=== PATIENT | male | born 1955 | race Caucasian/White ===

== ENCOUNTER 2025-04-27 11:58 | Emergency (ER) | payer OTHER, SELFPAY ==
--- OUTSIDE RECORDS SUMMARY | 2023-12-06 11:45 | XMS_ITS ---
Author Organization [facility] Office Address [address] [facility] [address] [facility] [address] [place] [address] Care Team Providers Care A And P Technician Name Role Phone Heath Mikey Unavailable [phone] Medications Medication SIG (Take, Route, Frequency, Duration) Notes Start Date End Date Status Jardiance 10 MG 1 tablet Orally Once a day; Duration: 90 08/03/2023 04/29/2024 Active Vitamin D (Ergocalciferol) 1.25 MG (42386 UT) TAKE 1 CAPSULE BY MOUTH ONE TIME PER WEEK FOR 90 DAYS; Duration: 28 Active Losartan Potassium 25 MG 1 tablet Orally Once a day; Duration: 90 day(s) 02/23/2023 Active Furosemide 40 MG TAKE 1 TABLET BY PARK TH EVERY 8 HOURS; Duration: 30 Active Social History Sex Assigned At : Social History Observation Description Sex Assigned At Male Encounters Encounter Location Date Provider Diagnosis [facility] [address] [place] [address] 12/06/2023 Mikey Joe Chronic kidney disea se, stage 4 (severe) N18.4 ; Heart failure, unspecified I50.9 ; Acute kidney failure, unspecified N17.9 ; Other acute kidney failure N17.8 ; Essential (primary) hypertension I10 and Renal osteodystrophy N25.0 Assessments Encounter Date Diagnosis (ICD Code) Assessment Notes Treatment Notes Treatment Clinical Notes Section Notes 12/06/2023 Chronic kidney disease, stage 4 (severe) (ICD-10 - N18.4) 12/06/2023 Heart failure, unspecified (ICD-10 - I50.9) 12/06/2023 Acute kidney failure, unspecified (ICD-10 - N17.9) 12/06/2023 Other acute kidney failure (ICD-10 - N17.8) 12/06/2023 Essential (primary) hypertension (ICD-10 - I10) 12/06/2023 Renal osteodystrophy (ICD-10 - N25.0) Plan Of Treatment Next Appt Details Provider Name:Mikey Joe , 04/29/2025 02:00:00 PM, [address] [facility], [place], [address], Progress Notes * Thierno LUGODOB:1955 (70 yo M)Acc No.[id number]:12/06/2023 Patient: Thierno HINOJOSA Provider: Ben WEST MD, F.A.C.P, F.A.S.N. :1955 A ge:68 Y S ex:Male Date:12/06/2023 Address:[address] Subjective: * Chief Complaints: Objective: Assessment: * Assessment: 1. C hronic kidney disease, stage 4 (severe) - N18.4 (Primary) 2 . H eart failure, unspecified - I50.9 3 . A cute kidney failure, unspecified - N17.9 ? 4 . O ther acute kidney failure - N17.8 5 . E ssential (primary) hypertension - I10 6 . R enal osteodystrophy - N25.0 Plan: * Billing Information: * Visit Code: 66737 Office Visit, Est Pt., Level 5. * Procedure Codes: * Electronic signature of Calista Joe MD on 04/27/2025 at 01:28 PM CDT Sign off status: Pending * Provider: Ben WEST MD, F.Mikala.C.P, F.A.S.N. Date: 0 12/06/2023 Generated for Printing/Faxing/eTransmitting on: 01:28 PM CDT
--- OUTSIDE RECORDS SUMMARY | 2023-12-28 09:00 | XMS_ITS ---
Author Organization [facility] Office Address [address] [facility] [address] [place] [address] Care Team Providers Care Small Parts Assembler Name Role Phone Mikey Joe Unavailable [phone] Medications Medication SIG (Take, Route, Frequency, Duration) Notes Start Date End Date Status Calcitriol 0.25 MCG TAKE 1 CAPSULE BY [place] UTH TWICE A DAY; Duration: 30 Active Vitamin D (Ergocalciferol) 1.25 MG (80329 UT) TAKE 1 CAPSULE BY MOUTH ONE TIME PER WEEK FOR 90 DAYS; Duration: 28 Active Jardiance 10 MG 1 tablet Orally Once a day; Duration: 90 08/03/2023 04/29/2024 Active Furosemide 40 MG TAKE 1 TABLET BY PARK TH EVERY 8 HOURS; Duration: 30 Active Losartan Potassium 25 MG 1 tablet Orally Once a day; Duration: 90 day(s) 02/23/2023 Active Social History Sex Assigned At : Social History Observation Description Sex Assigned At Male Encounters Encounter Location Date Provider Diagnosis [place] [facility] [address] [facility] [address] [place] [address] 12/28/2023 Mikey Joe Chronic kidney disea se, stage 4 (severe) N18.4 ; Heart failure, unspecified I50.9 ; Acute kidney failure, unspecified N17.9 ; Other acute kidney failure N17.8 ; Essential (primary) hypertension I10 and Renal osteodystrophy N25.0 Assessments Encounter Date Diagnosis (ICD Code) Assessment Notes Treatment Notes Treatment Clinical Notes Section Notes 12/28/2023 Chronic kidney disease, stage 4 (severe) (ICD-10 - N18.4) 12/28/2023 Heart failure, unspecified (ICD-10 - I50.9) 12/28/2023 Acute kidney failure, unspecified (ICD-10 - N17.9) 12/28/2023 Other acute kidney failure (ICD-10 - N17.8) 12/28/2023 Essential (primary) hypertension (ICD-10 - I10) 12/28/2023 Renal osteodystrophy (ICD-10 - N25.0) Plan Of Treatment Next Appt Details Provider Name:Mikey Joe , 04/29/2025 02:00:00 PM, [address] [facility], [place], [address], Progress Notes * Thierno LUGODOB:1955 (70 yo M)Acc No.[id number]:12/28/2023 Progress Notes Patient: Thierno HINOJOSA Provider: Ben WEST MD, F.A.C.P, F.A.S.N. :1955 A ge:68 Y S ex:Male Date:12/28/2023 Address:[place] [address] Subjective: * Chief Complaints: * * Medical History: * Medications: T aking Losartan Potassium 25 MG Tablet 1 tablet Orally Once a day , Taking Furosemide 40 MG Tablet TAKE 1 TABLET BY MOUTH EVERY 8 HOURS , Taking Jardiance 10 MG Tablet 1 tablet Orally Once a day , stop date 04/29/2024, Taking Vitamin D (Ergocalciferol) 1.25 MG (25074 UT) Capsule TAKE 1 CAPSULE BY MOUTH ONE TIME PER WEEK FOR 90 DAYS , Taking Calcitriol 0.25 MCG Capsule TAKE 1 CAPSULE BY MOUTH TWICE A DAY Objective: * Vitals: Assessment: * Assessment: 1. C hronic kidney disease, stage 4 (severe) - N18.4 (Primary) 2 . H eart failure, unspecified - I50.9 3 . A cute kidney failure, unspecified - N17.9 ? 4 . O ther acute kidney failure - N17.8 5 . E ssential (primary) hypertension - I10 6 . R enal osteodystrophy - N25.0 Plan: * Treatment: * Billing Information: * Visit Code: 70179 Office Visit, Est Pt., Level 4. * Procedure Codes: * Electronic signature of Calista Joe MD on 04/27/2025 at 01:28 PM CDT Sign off status: Pending * Provider: Ben WEST MD, F.A.C.P, F.A.S.N. Date: 0 12/28/2023 Generated for Printing/Faxing/eTransmitting on: 1 01:28 PM CDT
--- OUTSIDE RECORDS SUMMARY | 2024-02-29 10:00 | XMS_ITS ---
Author Organization [facility] Address 1400 [facility] [address] [facility] [address] [place] [address] Care Team Providers Care Nut Tapper Name Role Phone Mikey Joe Unavailable [phone] Medications Medication SIG (Take, Route, Frequency, Duration) Notes Start Date End Date Status Calcitriol 0.25 MCG TAKE 1 CAPSULE BY [place] UTH TWICE A DAY; Duration: 30 Active Vitamin D (Ergocalciferol) 1.25 MG (89350 UT) TAKE 1 CAPSULE BY MOUTH ONE [...] Male Encounters Encounter Location Date Provider Diagnosis [place] [facility] [address] [facility] 15 [place] [address] 02/29/2024 Mikey Joe Chronic kidney disea se, stage 4 (severe) N18.4 ; Essential (primary) hypertension I10 ; Renal osteodystrophy N25.0 ; Heart failure, unspecified I50.9 ; Acute kidney failure, unspecified N17.9 and Other acute kidney failure N17.8 Assessments Encounter Date Diagnosis (ICD Code) Assessment Notes Treatment Notes Treatment Clinical Notes Section Notes 02/29/2024 Chronic kidney disease, stage 4 (severe) (ICD-10 - N18.4) 02/29/2024 Essential (primary) hypertension (ICD-10 - I10) 02/29/2024 Renal osteodystrophy (ICD-10 - N25.0) 02/29/2024 Heart failure, unspecified (ICD-10 - I50.9) 02/29/2024 Acute kidney failure, unspecified (ICD-10 - N17.9) 02/29/2024 Other acute kidney failure (ICD-10 - N17.8) Plan Of Treatment Next Appt Details Provider Name:Mikey Joe , 04/29/2025 02:00:00 PM, [address] [facility], [place], [address], Progress Notes * Thierno LUGODOB:1955 (70 yo M)Acc No.[id number]:02/29/2024 Progress Notes Patient: Thierno HINOJOSA Provider: Ben WEST MD, F.A.C.P, F.A.S.N. :1955 A ge:68 Y S ex:Male Date:02/29/2024 Address:[place] [address] Subjective: * Chief Complaints: * * Medical History: * Medications: T aking Losartan Potassium 25 MG Tablet 1 tablet Orally Once a day , Taking Furosemide 40 MG Tablet TAKE 1 TABLET BY MOUTH EVERY 8 HOURS , Taking Jardiance 10 MG Tablet 1 tablet Orally Once a day , stop date 04/29/2024, Taking Vitamin D (Ergocalciferol) 1.25 MG (44292 UT) Capsule TAKE 1 CAPSULE BY MOUTH ONE TIME PER WEEK FOR 90 DAYS , Taking Calcitriol 0.25 MCG Capsule TAKE 1 CAPSULE BY MOUTH TWICE A DAY Objective: * Vitals: Assessment: * Assessment: 1. C hronic kidney disease, stage 4 (severe) - N18.4 (Primary) 2 . E ssential (primary) hypertension - I10 3 . R enal osteodystrophy - N25.0 ?4. H eart failure, unspecified - I50.9 5 . A cute kidney failure, unspecified - N17.9 6 . O ther acute kidney failure - N17.8 Plan: * Treatment: * Billing Information: * Visit Code: 31694 Office Visit, Est Pt., Level 4. * Procedure Codes: * Electronic signature of Calista Joe MD on 04/27/2025 at 01:28 PM CDT Sign off status: Pending * Provider: Ben WEST MD, F.A.C.P, F.A.S.N. Date: 0 02/29/2024 Generated for Printing/Faxing/eTransmitting on: 1 01:28 PM CDT
--- OUTSIDE RECORDS SUMMARY | 2024-03-28 09:15 | XMS_ITS ---
Author Organization [facility] Office Address 1400 [facility] [address] [facility] [address] [place] [address] Care Team Providers Care National Facilities Manager Name Role Phone Heath Mikey Unavailable [phone] Medications Medication SIG (Take, Route, Frequency, Duration) Notes Start Date End Date Status Calcitriol 0.25 MCG TAKE 1 CAPSULE BY [place] UTH TWICE A DAY; Duration: 30 Active Furosemide 40 MG TAKE 1 TABLET BY PARK TH TWICE A DAY; Duration: 30 Active Losartan Potassium 25 MG 1 tablet Orally Once a day; Duration: 90 day(s) 02/23/2023 Active Jardiance 10 MG 1 tablet Orally Once a day; Duration: 90 08/03/2023 04/29/2024 Active Vitamin D (Ergocalciferol) 1.25 MG (94003 UT) TAKE 1 CAPSULE BY MOUTH ONE TIME PER WEEK FOR 90 DAYS; Duration: 28 Active Social History Sex Assigned At : Social History Observation Description Sex Assigned At Male Encounters Encounter Location Date Provider Diagnosis [place] [facility] [address] [facility] 15 [place] [address] 03/28/2024 Mikey Joe Chronic kidney disea se, stage 4 (severe) N18.4 ; Essential (primary) hypertension I10 ; Heart failure, unspecified I50.9 ; Acute kidney failure, unspecified N17.9 ; Other acute kidney failure N17.8 and Renal osteodystrophy N25.0 Assessments Encounter Date Diagnosis (ICD Code) Assessment Notes Treatment Notes Treatment Clinical Notes Section Notes 03/28/2024 Chronic kidney disease, stage 4 (severe) (ICD-10 - N18.4) 03/28/2024 Essential (primary) hypertension (ICD-10 - I10) 03/28/2024 Heart failure, unspecified (ICD-10 - I50.9) 03/28/2024 Acute kidney failure, unspecified (ICD-10 - N17.9) 03/28/2024 Other acute kidney failure (ICD-10 - N17.8) 03/28/2024 Renal osteodystrophy (ICD-10 - N25.0) Plan Of Treatment Next Appt Details Provider Name:Mikey Joe , 04/29/2025 02:00:00 PM, [address] [facility], [place], [address], Progress Notes * Thierno ULGODOB:1955 (70 yo M)Acc No.[id number]:03/28/2024 Progress Notes Patient: Thierno HINOJOSA Provider: Ben WEST MD, F.A.C.P, F.A.S.N. :1955 A ge:68 Y S ex:Male Date:03/28/2024 Address:[place] [address] Subjective: * Chief Complaints: * * Medical History: * Medications: T aking Losartan Potassium 25 MG Tablet 1 tablet Orally Once a day , Taking Jardiance 10 MG Tablet 1 tablet Orally Once a day , stop date 04/29/2024, Taking Vitamin D (Ergocalciferol) 1.25 MG (59544 UT) Capsule TAKE 1 CAPSULE BY MOUTH ONE TIME PER WEEK FOR 90 DAYS , Taking Calcitriol 0.25 MCG Capsule TAKE 1 CAPSULE BY MOUTH TWICE A DAY , Taking Furosemide 40 MG Tablet TAKE 1 TABLET BY MOUTH TWICE A DAY Objective: * Vitals: Assessment: * Assessment: 1. C hronic kidney disease, stage 4 (severe) - N18.4 (Primary) 2 . E ssential (primary) hypertension - I10 3 . H eart failure, unspecified - I50.9 ? 4 . A cute kidney failure, unspecified - N17.9 5 . O ther acute kidney failure - N17.8 6 . R enal osteodystrophy - N25.0 Plan: * Treatment: * Billing Information: * Visit Code: 63500 Office Visit, Est Pt., Level 4. * Procedure Codes: * Electronic signature of Calista Joe MD on 04/27/2025 at 01:28 PM CDT Sign off status: Pending * Provider: Ben WEST MD, F.A.C.P, F.A.S.N. Date: 0 03/28/2024 Generated for Printing/Faxing/eTransmitting on: 1 01:28 PM CDT
--- OUTSIDE RECORDS SUMMARY | 2024-05-21 10:15 | XMS_ITS ---
Author Organization [facility] Office Address [address] [place] [address] Care Team Providers Care Tumbler Drier Operator Name Role Phone Mikey Joe Unavailable [phone] Medications Medication SIG (Take, Route, Frequency, Duration) Notes Start Date End Date Status Lexapro 10 MG 1 tablet Orally Once a day; Duration: 90 days 03/28/2024 Active Cardura 2 MG 1 tablet at bedtime Orally; Duration: 30 days 03/28/2024 07/25/2024 Active Vitamin D (Ergocalciferol) 1.25 MG (36703 UT) TAKE 1 CAPSULE BY MOUTH ONE TIME PER WEEK FOR 90 DAYS; Duration: 28 Active Calcitriol 0.25 MCG TAKE 1 CAPSULE BY [...] Male Encounters Encounter Location Date Provider Diagnosis [place] [facility] [address] [facility] 15 [place] [address] 05/21/2024 Mikey Joe Heart failure, unspecified I50.9 ; Chronic kidney disease, stage 5 N18.5 ; Acute kidney failure, unspecified N17.9 ; Other acute kidney failure N17.8 ; Essential (primary) hypertension I10 ; Renal osteodystrophy N25.0 and Chronic kidney disease, stage 4 (severe) N18.4 Assessments Encounter Date Diagnosis (ICD Code) Assessment Notes Treatment Notes Treatment Clinical Notes Section Notes 05/21/2024 Heart failure, unspecified (ICD-10 - I50.9) 05/21/2024 Chronic kidney disease, stage 5 (ICD-10 - N18.5) 05/21/2024 Acute kidney failure, unspecified (ICD-10 - N17.9) 05/21/2024 Other acute kidney failure (ICD-10 - N17.8) 05/21/2024 Essential (primary) hypertension (ICD-10 - I10) 05/21/2024 Renal osteodystrophy (ICD-10 - N25.0) 05/21/2024 Chronic kidney disease, stage 4 (severe) (ICD-10 - N18.4) Plan Of Treatment Next Appt Details Provider Name:Mikey Heath , 04/29/2025 02:00:00 PM, [address] [facility], [place], [address], Progress Notes * Thierno LUGODOB:1955 (70 yo M)Acc No.[id number]:05/21/2024 Progress Notes Patient: Thierno HINOJOSA Provider: Ben WEST MD, F.Mikala.CKeishaP, F.A.S.N. :1955 A ge:69 Y S ex:Male Date:05/21/2024 Address:[place] [id number] Subjective: * Chief Complaints: * * Medical History: * Medications: T aking Lexapro 10 MG Tablet 1 tablet Orally Once a day , Taking Cardura 2 MG Tablet 1 tablet at bedtime Orally , stop date 07/25/2024, Taking Losartan Potassium 25 MG Tablet 1 tablet Orally Once a day , Taking Vitamin D (Ergocalciferol) 1.25 MG (10578 UT) Capsule TAKE 1 CAPSULE BY MOUTH ONE TIME PER WEEK FOR 90 DAYS , Taking Calcitriol 0.25 MCG Capsule TAKE 1 CAPSULE BY MOUTH TWICE A DAY , Taking Furosemide 40 MG Tablet TAKE 1 TABLET BY MOUTH TWICE A DAY Objective: * Vitals: Assessment: * Assessment: 1. C hronic kidney disease, stage 5 - N18.5 (Primary) 2 . H eart failure, unspecified - I50.9 3 . A cute kidney failure, unspecified - N17.9 ?4. O ther acute kidney failure - N17.8 5 . E ssential (primary) hypertension - I10 6 . R enal osteodystrophy - N25.0 7 . C hronic kidney disease, stage 4 (severe) - N18.4 Plan: * Treatment: * Billing Information: * Visit Code: 27270 Office Visit, Est Pt., Level 4. * Procedure Codes: * Electronic signature of Calista Joe MD on 04/27/2025 at 01:29 PM CDT Sign off status: Pending * Provider: Ben WEST MD, F.A.C.P, F.A.S.N. Date: 07/21/2023 Generated for Printing/Faxing/eTransmitting on: 01:29 PM CDT
--- OUTSIDE RECORDS SUMMARY | 2024-07-23 09:30 | XMS_ITS ---
Author Organization [facility] Address 1400 [facility] [address] [facility] [address] [place] [address] Care Team Providers Care Blade Worker Name Role Phone Mikey Joe Unavailable [phone] Medications Medication SIG (Take, Route, Frequency, Duration) Notes Start Date End Date Status Cardura 2 MG 1 tablet at bedtime Orally; Duration: 30 days 03/28/2024 07/25/2024 Active Calcitriol 0.25 MCG TAKE 1 CAPSULE BY [place] UTH TWICE A DAY; Duration: 30 Active Furosemide 40 MG TAKE 1 TABLET BY PARK TH TWICE A DAY; Duration: 30 Active Losartan Potassium 25 MG 1 tablet Orally Once a day; Duration: 90 day(s) 02/23/2023 Active Vitamin D (Ergocalciferol) 1.25 MG (00477 UT) TAKE 1 CAPSULE BY MOUTH ONE TIME PER WEEK FOR 90 DAYS; Duration: 28 Active Lexapro 10 MG 1 tablet Orally Once a day; Duration: 90 days 03/28/2024 Active Doxazosin Mesylate 2 MG 1 tablet Orally Once a day; Duration: 90 days 05/21/2024 02/15/2025 Active Social History Sex Assigned At : Social History Observation Description Sex Assigned At Male Problems Problem Type SNOMED Code ICD Code Onset Dates Problem Status W/U Status Risk Notes Problem Diabetic renal disease (770924104) Type 2 diabetes mellitus with diabetic chronic kidney disease (E11.22) Active confirmed Problem Secondary hyperparathyroidism of renal origin (46214441) Secondary hyperparathyroidism of renal origin (N25.81) Active confirmed Encounters Encounter Location Date Provider Diagnosis [place] [facility] [address] [facility] 15 [place] [address] 07/23/2024 Mikey Joe Type 2 diabetes [facility] with diabetic chronic kidney disease E11.22 ; Essential (primary) hypertension I10 ; Proteinuria, unspecified R80.9 ; Renal osteodystrophy N25.0 and Secondary hyperparathyroidism of renal origin N25.81 Assessments Encounter Date Diagnosis (ICD Code) Assessment Notes Treatment Notes Treatment Clinical Notes Section Notes 07/23/2024 Type 2 diabetes mellitus with diabetic chronic kidney disease (ICD-10 - E11.22) 07/23/2024 Essential (primary) hypertension (ICD-10 - I10) 07/23/2024 Proteinuria, unspecified (ICD-10 - R80.9) 07/23/2024 Renal osteodystrophy (ICD-10 - N25.0) 07/23/2024 Secondary hyperparathyroidism of renal origin (ICD-10 - N25.81) Plan Of Treatment Next Appt Details Provider Name:Mikey Joe , 04/29/2025 02:00:00 PM, [address] [facility], [place], [address], Progress Notes * SAMIA ThiernoDOB:1955 (70 yo M)Acc No.[id number]:07/23/2024 Progress Notes Patient: Thierno HINOJOSA Provider: Ben WEST MD, F.A.C.P, F.A.S.N. :1955 A ge:69 Y S ex:Male Date:07/23/2024 Address:[place] [address] Subjective: * Chief Complaints: * * Medical History: * Medications: T aking Doxazosin Mesylate 2 MG Tablet 1 tablet Orally Once a day , stop date 02/15/2025, Taking Lexapro 10 MG Tablet 1 tablet Orally Once a day , Taking Cardura 2 MG Tablet 1 tablet at bedtime Orally , stop date 07/25/2024, Taking Losartan Potassium 25 MG Tablet 1 tablet Orally Once a day , Taking Vitamin D (Ergocalciferol) 1.25 MG (87335 UT) Capsule TAKE 1 CAPSULE BY MOUTH ONE TIME PER WEEK FOR 90 DAYS , Taking Calcitriol 0.25 MCG Capsule TAKE 1 CAPSULE BY MOUTH TWICE A DAY , Taking Furosemide 40 MG Tablet TAKE 1 TABLET BY MOUTH TWICE A DAY Objective: * Vitals: Assessment: * Assessment: 1. T ype 2 diabetes mellitus with diabetic chronic kidney disease - E11.22 (Primary) 2 . E ssential (primary) hypertension - I10 3 . P roteinuria, unspecified - R80.9 4 . R enal osteodystrophy - N25.0 5 . S econdary hyperparathyroidism of renal origin - N25.81 Plan: * Treatment: * Billing Information: * Visit Code: 32516 Office Visit, Est Pt., Level 4. * Procedure Codes: * Electronic signature of Calista Joe MD on 04/27/2025 at 01:29 PM CDT Sign off status: Pending * Provider: Ben WEST MD, F.A.C.P, F.A.S.N. Date: 0 07/23/2024 Generated for Printing/Faxing/eTransmitting on: 1 01:29 PM CDT
--- OUTSIDE RECORDS SUMMARY | 2024-09-10 09:45 | XMS_ITS ---
Author Organization [facility] Office Address [address] [place] [address] [place] [address] Care Team Providers Care Medical Technologist Prn Name Role Phone Mikey Joe Unavailable [phone] Social History Sex Assigned At : Social History Observation Description Sex Assigned At Male Problems Problem Type SNOMED Code ICD Code Onset Dates Problem Status W/U Status Risk Notes Problem Anemia (057499277) Anemia, unspecified (D64.9) Active confirmed Problem Proteinuria (63648476) Proteinuria, unspecified (R80.9) Active confirmed Encounters Encounter Location Date Provider Diagnosis [place] [facility] [address] [facility] 15 [place] [address] 09/10/2024 Mikey Joe Chronic kidney disea se, stage 4 (severe) N18.4 ; Heart failure, unspecified I50.9 ; Acute kidney failure, unspecified N17.9 ; Other acute kidney failure N17.8 ; Essential (primary) hypertension I10 ; Renal osteodystrophy N25.0 ; Type 2 diabetes mellitus with diabetic chronic kidney disease E11.22 ; Secondary hyperparathyroidism of renal origin N25.81 ; Anemia, unspecified D64.9 and Proteinuria, unspecified R80.9 Assessments Encounter Date Diagnosis (ICD Code) Assessment Notes Treatment Notes Treatment Clinical Notes Section Notes 09/10/2024 Chronic kidney disea se, stage 4 (severe) (ICD-10 - N18.4) 09/10/2024 Heart failure, unspecified (ICD-10 - I50.9) 09/10/2024 Acute kidney failure , unspecified (ICD-10 - N17.9) 09/10/2024 Other acute kidney failure (ICD-10 - N17.8) 09/10/2024 Essential (primary) hypertension (ICD-10 - I10) 09/10/2024 Renal osteodystrophy (ICD-10 - N25.0) 09/10/2024 Type 2 diabetes mellitus with diabetic chronic kidney disease (ICD-10 - E11.22) 09/10/2024 Secondary hyperparathyroidism of renal origin (ICD-10 - N25.81) 09/10/2024 Anemia, unspecified (ICD-10 - D64.9) 09/10/2024 Proteinuria, unspecified (ICD-10 - R80.9) Plan Of Treatment Next Appt Details Provider Name:Mikey Heath , 04/29/2025 02:00:00 PM, [address] [facility], [place], [address], Progress Notes * Thierno LUGODOB:1955 (70 yo M)Acc No.[id number]:09/10/2024 Progress Notes Patient: Thierno HINOJOSA Provider: Ben WEST MD, F.A.C.P, F.A.S.N. :1955 A ge:69 Y S ex:Male Date:09/10/2024 Address:[place] [id number] Subjective: * Chief Complaints: * * Medical History: Objective: * Vitals: Assessment: * Assessment: 1. C hronic kidney disease, stage 4 (severe) - N18.4 (Primary) 2 . H eart failure, unspecified - I50.9 3 . A cute kidney failure, unspecified - N17.9 ? 4 . O ther acute kidney failure - N17.8 5 . E ssential (primary) hypertension - I10 6 . R enal osteodystrophy - N25.0 7 . T ype 2 diabetes mellitus with diabetic chronic kidney disease - E11.22 8 . S econdary hyperparathyroidism of renal origin - N25.81 9 . A nemia, unspecified - D64.9 1 0. P roteinuria, unspecified - R80.9 Plan: * Treatment: * Billing Information: * Visit Code: 62434 Office Visit, Est Pt., Level 4. * Procedure Codes: * Electronic signature of Calista Joe MD on 04/27/2025 at 01:28 PM CDT Sign off status: Pending * Provider: Ben WEST MD, F.A.C.P, F.A.S.N. Date: 0 09/10/2024 Generated for Printing/Faxing/eTransmitting on: 1 01:28 PM CDT
--- OUTSIDE RECORDS SUMMARY | 2024-11-19 09:30 | XMS_ITS ---
Author Organization [facility] Office Address [id number] [place] [address] Care Team Providers Care Media Theorist And Author Of Name Role Phone Mikey Joe Unavailable [phone] Social History Sex Assigned At : Social History Observation Description Sex Assigned At Male Encounters Encounter Location Date Provider Diagnosis [place] [facility] [address] [facility] [address] [place] [address] 11/19/2024 Mikey Joe Chronic kidney disea se, stage [...] Treatment Notes Treatment Clinical Notes Section Notes 11/19/2024 Chronic kidney disea se, stage 4 (severe) (ICD-10 - N18.4) 11/19/2024 Heart failure, unspecified (ICD-10 - I50.9) 11/19/2024 Acute kidney failure , unspecified (ICD-10 - N17.9) 11/19/2024 Other acute kidney failure (ICD-10 - N17.8) 11/19/2024 Essential (primary) hypertension (ICD-10 - I10) 11/19/2024 Renal osteodystrophy (ICD-10 - N25.0) 11/19/2024 Type 2 diabetes mellitus with diabetic chronic kidney disease (ICD-10 - E11.22) 11/19/2024 Secondary hyperparathyroidism of renal origin (ICD-10 - N25.81) 11/19/2024 Anemia, unspecified (ICD-10 - D64.9) 11/19/2024 Proteinuria, unspecified (ICD-10 - R80.9) Plan Of Treatment Next Appt Details Provider Name:Mikey Heath , 04/29/2025 02:00:00 PM, [address] [facility], [place], [address], Progress Notes * Thierno LUGODOB:1955 (70 yo M)Acc No.[id number]:11/19/2024 Progress Notes Patient: Thierno HINOJOSA Provider: Ben WEST MD, F.A.C.P, F.A.S.N. :1955 A ge:69 Y S ex:Male Date:11/19/2024 Address:[address] Subjective: * Chief Complaints: * * Medical [...] Treatment: * Billing Information: * Visit Code: 44607 Office Visit, Est Pt., Level 4. * Procedure Codes: * Electronic signature of Calista Joe MD on 04/27/2025 at 01:29 PM CDT Sign off status: Pending * Provider: Ben WEST MD, F.A.C.P, F.A.S.N. Date: 0 11/19/2024 Generated for Printing/Faxing/eTransmitting on: 1 01:29 PM CDT
--- OUTSIDE RECORDS SUMMARY | 2025-01-14 09:00 | XMS_ITS ---
Author Organization [facility] Address [address] [address] [place] [address] Care Team Providers Care Executive Secretary Name Role Phone Mikey Joe Unavailable [phone] Social History Sex Assigned At : Social History Observation Description Sex Assigned At Male Problems Problem Type SNOMED Code ICD Code Onset Dates Problem Status W/U Status Risk Notes Problem Metabolic disorder (37556030) Metabolic disorder, unspecified (E88.9) Active confirmed Encounters Encounter Location Date Provider Diagnosis [facility] [address] 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 Assessments Encounter Date Diagnosis (ICD Code) Assessment Notes Treatment Notes Treatment Clinical Notes Section Notes 01/14/2025 Chronic kidney disea se, stage 4 (severe) (ICD-10 - N18.4) 01/14/2025 Heart failure, unspecified (ICD-10 - I50.9) 01/14/2025 Acute kidney failure , unspecified (ICD-10 - N17.9) 01/14/2025 Other acute kidney failure (ICD-10 - N17.8) 01/14/2025 Essential (primary) hypertension (ICD-10 - I10) 01/14/2025 Renal osteodystrophy (ICD-10 - N25.0) 01/14/2025 Type 2 diabetes mellitus with diabetic chronic kidney disease (ICD-10 - E11.22) 01/14/2025 Secondary hyperparathyroidism of renal origin (ICD-10 - N25.81) 01/14/2025 Anemia, unspecified (ICD-10 - D64.9) 01/14/2025 Proteinuria, unspecified (ICD-10 - R80.9) 01/14/2025 Metabolic disorder, unspecified (ICD-10 - E88.9) 01/14/2025 Hyperuricemia withou t signs of inflammatory arthritis and tophaceous disease (ICD-10 - E79.0) Plan Of Treatment Next Appt Details Provider Name:Mikey Heath , 04/29/2025 02:00:00 PM, [address] [facility], [place], [address], Progress Notes * Thierno LUGODOB:1955 (70 yo M)Acc No.[id number]:01/14/2025 Progress Notes Patient: Thierno HINOJOSA Provider: Ben WEST MD, F.A.C.P, F.A.S.N. :1955 A ge:69 Y S ex:Male Date:01/14/2025 Address:[id number] Subjective: * Chief Complaints: * * Medical [...] 1 0. P roteinuria, unspecified - R80.9 1 1. M etabolic disorder, unspecified - E88.9 1 2. H yperuricemia without signs of inflammatory arthritis and tophaceous disease - E79.0 Plan: * Treatment: * Billing Information: * Visit Code: 84153 Office Visit, Est Pt., Level 4. * Procedure Codes: * Electronic signature of Calista Joe MD on 04/27/2025 at 01:29 PM CDT Sign off status: Pending * Provider: Ben WEST MD, F.A.C.P, F.A.S.N. Date: 0 01/14/2025 Generated for Printing/Faxing/eTransmitting on: 1 01:29 PM CDT
--- OUTSIDE RECORDS SUMMARY | 2025-04-15 09:15 | XMS_ITS ---
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.89 and CAD (coronary artery disease) I25.10 Assessments Encounter Date Diagnosis (ICD Code) Assessment Notes Treatment Notes Treatment Clinical Notes Section Notes 04/15/2025 Chronic kidney disea se, stage 4 (severe) (ICD-10 - N18.4) 04/15/2025 Heart failure, unspecified (ICD-10 - I50.9) 04/15/2025 Acute kidney failure , unspecified (ICD-10 - N17.9) 04/15/2025 Other acute kidney failure (ICD-10 - N17.8) 04/15/2025 Essential (primary) hypertension (ICD-10 - I10) 04/15/2025 Renal osteodystrophy (ICD-10 - N25.0) 04/15/2025 Type 2 diabetes mellitus with diabetic chronic kidney disease (ICD-10 - E11.22) 04/15/2025 Secondary hyperparathyroidism of renal origin (ICD-10 - N25.81) 04/15/2025 Anemia, unspecified (ICD-10 - D64.9) 04/15/2025 Proteinuria, unspecified (ICD-10 - R80.9) 04/15/2025 Metabolic disorder, unspecified (ICD-10 - E88.9) 04/15/2025 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 :1955 A ge:70 Y S ex:Male Date:04/15/2025 Address:[address] [address] Subjective: * Chief Complaints: Objective: Assessment: * [...] etabolic disorder, unspecified - E88.9 1 2. O ther specified disorders of purine and pyrimidine metabolism - E79.89 1 3. C AD (coronary artery disease) - I25.10 ? Plan: * Billing Information: * Visit Code: 25919 Office Visit, Est Pt., Level 4. * Procedure Codes: * Electronic signature of Calista Joe MD on 04/27/2025 at 01:27 PM CDT Sign off status: Pending * Provider: Ben WEST MD, F.A.C.P, F.A.S.N. Date: Generated for Printing/Faxing/eTransmitting on: 01:27 PM CDT
[2025-04-27 12:08] VITALS: BP 127/77; PULSE 107; RESP 24; TEMP 36.6; O2SAT 100
--- NOTE | 2025-04-27 13:00 | ED_ITS ---
HPI - Ear Problem General Chief complaint: Ear Stated complaint: Bilateral Ear Pain Source: patient Mode of arrival: ambulatory Limitations: no limitations History of Present Illness HPI Narrative: Patient presents for evaluation of what he states as a buzzing sensation in the left ear. Symptom onset about 1 week ago. He indicates he fell into some his own excrement and thinks that he has stool in his left ear canal. He denies any pain, drainage from the ear, or hearing loss. He is currently under the care of Nephrology and has an appointment with them in two days. He denies any fever, chills, cough, shortness of breath, sore throat, right-sided otalgia. He does not smoke. He has been trying to clean his ears to treat his symptoms but he does not feel it made a considerable difference in his symptoms. Related Data Home Medications ?Medication ?Instructions ?Recorded ?Confirmed ?Last Taken ?Type allopurinol 100 mg tablet mg 04/27/25 Unknown History calcitriol 0.25 mcg capsule mcg 04/27/25 Unknown Hist ory doxazosin 2 mg tablet mg 04/27/25 Unknown History empagliflozin 10 mg tablet mg 04/27/25 Unknown Histor y (Jardiance) ergocalciferol (vitamin D2) 1,250 04/27/25 Unknown H istory mcg (50,000 unit) capsule escitalopram oxalate 10 mg tablet mg 04/27/25 Unknown History ferrous sulfate 325 mg (65 mg mg 04/27/25 Unknown His tory iron) tablet furosemide 40 mg tablet mg 04/27/25 Unknown History lisinopril 40 mg tablet mg 04/27/25 Unknown History metoprolol succinate 100 mg mg PO 04/27/25 Unknown Hi story tablet,extended release 24 hr rosuvastatin 40 mg tablet mg 04/27/25 Unknown History Allergies Allergy/AdvReac Type Severity Reaction Status Date / Time No Known Allergies Allergy Verified 04/27/25 12:23 Review of Systems Review of Systems: CONSTITUTIONAL: Denies fever, chills, or sweats. EYES: Denies visual changes, redness, or discharge. ENT: Reports buzzing sensation in the left ear without pain, hearing loss or d rainage. CARDIOVASCULAR: Denies chest pain, palpitations, or edema. RESPIRATORY: Denies cough or dyspnea. GASTROINTESTINAL: Denies abdominal pain, nausea, vomiting, or diarrhea. GENITOURINARY: Denies dysuria or hematuria. SKIN: Denies rash or itching. MUSCULOSKELETAL: Denies back pain, joint pain, or myalgia. NEUROLOGIC: Denies headache, numbness, dizziness, or weakness. PSYCHIATRIC: Denies anxiety or depression. [facility] Past Medical History Medical History Hyperlipidemia Chronic kidney disease Surgical History Surgical History No pertinent past surgical history Family History Family History Mother Family history non-contributory Social History Social History Alcohol intake: former Gender identity (if verbalized by the patient): Male Spiritual care concerns: No Exam Narrative: GENERAL: appears chronically ill but in no apparent distress HEAD: Normocephalic, atraumatic. EYES: PERRLA and EOMI. ENT: Nares clear, no rhinorrhea or epistaxis. Mucous membranes moist. Oropharynx without tonsillar hypertrophy exudate or other lesions. Bilateral TMs pearly nicole nonbulging NECK: Supple. No adenopathy or masses. No carotid bruits or JVD CHEST: Clear to auscultation. No respiratory distress. No wheezes rales or rhonchi HEART: Regular rate and rhythm. No murmur heard. Normal peripheral pulses. ABDOMEN: Soft, nontender, nondistended, normal active bowel sounds. EXTREMITIES: Normal range of motion. No edema. SKIN: Generalized pallor. Warm, dry, no rash. NEURO: No focal deficits. Alert and oriented x3. PSYCH: Normal mood and affect. Course Course Emergency Course: this is a 70-year-old male who presented for evaluation of a buzzing sensation in left ear. His ear exam today is completely normal. I do not appreciate any posterior pharyngeal erythema or exudate. He has no other infectious symptoms. Perhaps this is related to abnormal lab work. He has a follow-up appointment with his lab support service tech in the next 2 days. In the event that he does not have a improvement, I provided him with the contact information for Ear Nose and Throat provider with [facility]. He should go to the emergency department for worsening symptoms. Patient in agreement with plan of care. Level of Care: Express Care Visit Vital Signs Vital signs: Vital Signs Temperature 36.6 C 04/27/25 12:08 Pulse Rate 107 H 04/27/25 12:08 Respiratory Rate 24 H 04/27/25 12:08 Blood Pressure 127/77 04/27/25 12:08 Pulse Oximetry 100 04/27/25 12:08 Oxygen Delivery Room Air 04/27/25 12:08 Temperature 36.6 C 04/27/25 12:08 Pulse Rate 107 H 04/27/25 12:08 Respiratory Rate 24 H 04/27/25 12:08 Blood Pressure 127/77 04/27/25 12:08 Pulse Oximetry 100 04/27/25 12:08 Oxygen Delivery Room Air 04/27/25 12:08 Medical Decision Making Vital Signs Vital Signs: Vital Signs Temperature 36.6 C 04/27/25 12:08 Pulse Rate 107 H 04/27/25 12:08 Respiratory Rate 24 H 04/27/25 12:08 Blood Pressure 127/77 04/27/25 12:08 Pulse Oximetry 100 04/27/25 12:08 Oxygen Delivery Room Air 04/27/25 12:08 Temperature 36.6 C 04/27/25 12:08 Pulse Rate 107 H 04/27/25 12:08 Respiratory Rate 24 H 04/27/25 12:08 Blood Pressure 127/77 04/27/25 12:08 Pulse Oximetry 100 04/27/25 12:08 Oxygen Delivery Room Air 04/27/25 12:08 Discharge Plan Discharge Clinical Impression: Buzzing in left ear Patient Disposition: Home Condition: Stable Instructions: Antibiotic Form, Earache (ED) Additional Instructions: PLEASE SPEAK WITH YOU PRIMARY PROVIDER AND YOUR CASTING COORDINATOR ABOUT YOUR SYMPTOMS. THIS COULD BE RELATED TO YOUR KIDNEY FUNCTION. IF YOU SYMPTOMS PERSIST, YOU MAY REACH OUT TO EAR, NOSE AND THROAT DOCTOR Patient Language: [place] Prescriptions: No Action furosemide 40 mg tablet metoprolol succinate 100 mg tablet extended release 24 hr PO allopurinol 100 mg tablet ferrous sulfate 325 mg (65 mg iron) tablet ergocalciferol (vitamin D2) 1,250 mcg (50,000 unit) capsule lisinopril 40 mg tablet calcitriol 0.25 mcg capsule doxazosin 2 mg tablet escitalopram oxalate 10 mg tablet rosuvastatin 40 mg tablet Jardiance 10 mg tablet Follow-up/Referrals: Dany Forman MD [Physician, Ear, Nose, Throat] [facility] Shell [Primary Care Provider] Time of Disposition: 12:58
--- OUTSIDE RECORDS SUMMARY | 2025-04-27 13:28 | XMS_ITS | Encounter Summary ---
Author Organization [facility] Address [address] [place] [address] Care Team Providers Care Planting Material Carrier Name Role Phone Shell Nevarez MD Primary Care Provider [phone] Encounter Details Date Type Department Care Team (Late st Contact Info) Description 2025 Results Follow-Up [facility] Family Medicine [address] [facility] [address] [place] [phone] Shell Nevarez MD [address] [place] [address] [address] [place] [address] CBC with auto differential, Lipid panel, Comprehensive metabolic panel Social History Tobacco Use Types Packs/Day Years Used Date Smoking Tobacco: Never PHQ-2 Answer Date Recorded PHQ-2 Total Score (If total score is 3 or more points, staff should administer the PHQ-9) 0 01/07/2025 Sex and Gender Information Value Date Recorded Sex Assigned at Not on file Legal Sex Male 10:33 AM CDT Gender Identity Not on file Sexual Orientation Not on file documented as of this encounter Plan of Treatment Not on file documented as of this encounter Visit Diagnoses Not on filedocumented in this encounter Care Teams Planting Material Carrier Relationship Specialty Start Date End Date Shell Nevarez MD PCP - General Family Medicine 10/01/24 documented as of this encounter
--- OUTSIDE RECORDS SUMMARY | 2025-04-27 13:28 | XMS_ITS | Clinical Summary ---
Author Organization [facility] [place] Address [address] [place] [address] Care Team Providers Care Foxer Name Role Phone Shell Nevarez MD Primary Care Provider [phone] Allergies No known active allergies Medications albuterol HFA (PROVENTIL HFA,VENTOLIN HFA,PROAIR HFA) 90 mcg/actuation inhaler 1 puff Active ascorbic acid, vitamin C, (VITAMIN C) 500 mg capsule, extended release CR capsule Take 1 mg twice a day by oral route. Active calcitRIOL (ROCALTROL) 0.25 mcg capsule Take 1 capsule (0.25 mcg total) by mouth 2 (two) times a day Active doxazosin (CARDURA) 2 mg tablet 1 tablet (2 mg total) Active Jardiance 10 mg tablet Take 1 tablet (10 mg total) by mouth daily Active escitalopram (LEXAPRO) 10 mg tablet 1 tablet (10 mg total) Active ferrous sulfate 325 mg (65 mg of elemental iron) tablet Take 1 tablet (325 mg total) by mouth daily Active furosemide (LASIX) 40 mg tablet Take 1 tablet (40 mg total) by mouth daily Active lisinopriL (PRINIVIL,ZESTR IL) 40 mg tablet Take 1 tablet (40 mg total) by mouth daily Active metoprolol XL (TOPROL-XL) 100 mg 24 hr tablet Take 1 tablet (100 mg total) by mouth nightly 90 tablet 3 01/06/2025 Active rosuvastatin (CRESTOR) 40 mg tablet Take 1 tablet (40 mg total) by mouth nightly 90 tablet 3 01/06/2025 Active ergocalciferol, vitamin D2, 10 mcg (400 unit) tablet Take 1.25 mg by mouth every 2 (two) weeks Active Active Problems Problem Noted Date Diagnosed Date Well adult exam 01/07/2025 Assessment & Plan (01/18/2025 4:33 PM CDT): Orders: PSA screen; Future Comprehensive metabolic panel; Future Lipid panel; Future CBC with auto differential; Future Paroxysmal atrial fibrillation 01/06/2025 Assessment & Plan (01/18/2025 4:33 PM CDT): Orders: Comprehensive metabolic panel; Future Lipid panel; Future CBC with auto differential; Future Cardiomyopathy 01/06/2025 CKD (chronic kidney disease) stage 4, GFR 15-29 ml/min 01/06/2025 Assessment & Plan (01/18/2025 4:33 PM CDT): Orders: Comprehensive metabolic panel; Future Lipid panel; Future CBC with auto differential; Future Encounters Date Type Department Care Team Description 2025 Results Follow-Up [facility] [address] [facility] [address] [place] [address] Shell Nevarez MD CBC with auto differential, Lipid panel, Comprehensive metabolic panel 02/18/2025 Results Follow-Up [facility] [address] [facility] [address] [place] [address] Janet Perez MD Transthoracic Echo (TTE) Complete W Doppler/CF 02/13/2025 12:23 PM CDT - 02/13/2025 11:59 PM CDT Hospital Encounter [facility] [address] [place] [address] Janet Perez MD Cardiomyopathy, unspecified type (HCC); Paroxysmal atrial fibrillation (HCC) Discharge Disposition: Discharge to home or self care from Last 3 Months Immunizations Immunization Administration Dates Next Due Influenza, Unspecified 04/01/2024(Deferred: Shanta ent Refused) Medical History Medical History Date Comments CHF (congestive heart failure) (HCC) Irregular heart beat Enlarged heart Social History Tobacco Use Types Packs/Day Years Used Date Smoking Tobacco: Never Tobacco Cessation:Counseling Given: Not Answered PHQ-2 Answer Date Recorded PHQ-2 Total Score (If total score is 3 or more points, staff should administer the PHQ-9) 0 01/07/2025 Sex and Gender Information Value Date Recorded Sex Assigned at Not on file Legal Sex Male 10:33 AM CDT Gender Identity Not on file Sexual Orientation Not on file Obstetrics History Last Filed Vital Signs Vital Sign Reading Time Taken Comments Blood Pressure 118/80 01/07/2025 3:01 PM CDT Pulse 62 01/07/2025 3:01 PM CDT Temperature 36.7 C (98.1 F) 01/07/2025 3:01 PM CDT Respiratory Rate - - Oxygen Saturation 97% 01/07/2025 3:01 PM CDT Inhaled Oxygen Concentration - - Weight 77.8 kg (171 lb 9.6 oz) 01/07/2025 3:01 P M CDT Height 157.5 cm (5' 2) 01/07/2025 3:01 PM CDT Body Mass Index 31.39 01/07/2025 3:01 PM CDT Plan of Treatment Health Maintenance Due Date Last Done Comments Colon Cancer Screening-Colonoscopy 1955 Fall Risk Assessment 1955 Hepatitis C Screening 1955 Prostate Cancer Screening-PSA 1955 Hepatitis B Screening 1974 Zoster Vaccine (1 of 2) 2006 Well Visit 65+ 2021 DTaP/Tdap/Td Vaccine (1 - Tdap) 12/28/2022 Pneumococcal vaccine 65+ (2 of 2 - PPSV23, PCV20, or PCV21) 02/21/2023 12/27/2022 Influenza Vaccine (#1) 2025 Depression Screening 01/07/2026 01/07/2025 Procedures Procedure Name Priority Date/Time Associated Diagnosis Comments TRANSTHORACIC ECHO (TTE) COMPLETE W DOPPLER/CF WO CONTRAST Routine 02/13/2025 1:24 PM CDT Cardiomyopathy, unspecified type (HCC) Paroxysmal atrial fibrillation (HCC) from Last 3 Months Results * TRANSTHORACIC ECHO (TTE) COMPLETE W DOPPLER/CF WO CONTRAST (02/13/2025 1:24 PM CDT) EF Mod BP 59 % CONS SCIMAGE Anatomical Region Laterality Modality Ultrasound 02/13/2025 12:3 5 PM CDT Narrative 02/17/2025 9:56 AM CDT Transthoracic Echocardiographic Report Patient Name: SANCHEZ LUGO : 1955 (69y 10m) Gender: M Study Date: 02/13/2025 12:35:25 PM Ht(Inch): 62 Wt(Lb): 170.99 BSA: 1.84 President Sales And Marketing: Carito Ceballos RDCS Order Provider: JANET PEREZ Heart Rate: 59 BMI: 31.27 BP: 118/80 Ref Provider: JANET PEREZ PROCEDURES: Echocardiographic Report: ([id number]) Transthoracic complete echo, 2D, spectral and tissue Doppler, color flow Doppler, M-mode. INDICATIONS: I42.9 Cardiomyopathy, unspecified and I48.0 Paroxysmal atrial fibrillation. FINDINGS: Left Ventricle: Normal left ventricular cavity size. Mild concentric left ventricular hypertrophy. Normal left ventricular systolic function. The Ejection Fraction (Nelson's) is measured at 59 %. Diastolic Function Left ventricular diastolic parameters are consistent with Grade I diastolic dysfunction (normal LA pressure). Right Ventricle: Normal right ventricular size. Normal right ventricular systolic function. Left Atrium: Mildly dilated left atrium. Right Atrium: The right atrium is normal in size. Atrial Septum: Interatrial Septum is not well visualized due to poor echo windows. Mitral Valve: Normal mitral valve leaflet structure. No mitral regurgitation seen. No mitral valve stenosis. Aortic Valve: Mild aortic valve regurgitation. No aortic valve stenosis. The mean transaortic gradient is 5 mmHg. Tricuspid Valve: The tricuspid valve demonstrates normal leaflet structure. No tricuspid regurgitation seen. The estimated right ventricular systolic pressure is 27 mmHg. PASP cannot be evaluated due to lack of adequate TR jet. No tricuspid valve stenosis. Pulmonic Valve: Pulmonic Valve not well visualized due to poor echo windows. Pericardium: No pericardial effusion. Aorta: Normal aortic root. The aortic sinus is normal in size. The ascending aorta is normal in size. IVC: IVC Collapses normally with inspiration. The estimated RA pressure is 3 mmHg. CONCLUSIONS: 1. Normal left ventricular cavity size. Mild concentric left ventricular hypertrophy. Normal left ventricular systolic function. The Ejection Fraction (Nelson's) is measured at 59 %. Diastolic Function Left ventricular diastolic parameters are consistent with Grade I diastolic dysfunction (normal LA pressure). 2. Normal right ventricular size. Normal right ventricular systolic function. 3. Normal mitral valve leaflet structure. No mitral regurgitation seen. No mitral valve stenosis. 4. Mild aortic valve regurgitation. No aortic valve stenosis. The mean transaortic gradient is 5 mmHg. 5. The tricuspid valve demonstrates normal leaflet structure. No tricuspid regurgitation seen. The estimated right ventricular systolic pressure is 27 mmHg. PASP cannot be evaluated due to lack of adequate TR jet. No tricuspid valve stenosis. MEASUREMENTS: 2D/MM Value Range Doppler Value LVIDd 2D 5.20 cm [ 3.50 - 5.70 ] AV Peak Anastacio 1.54 m/s LVIDs 2D 4.00 cm [ 3.10 - 4.60 ] AV Peak PG 9.49 mmHg IVSd 2D 1.00 cm [ 0.60 - 1.20 ] AV Mean PG 5.00 mmHg LVPWd 2D 1.20 cm [ 0.60 - 1.10 ] AV VTI 29.10 cm LV Thickness Ratio 0.83 LVOT Peak Anastacio 0.91 m/s LV Mass 2D 225.26 g LVOT Peak PG 3.31 mmHg LV Mass Index 2D 122.42 g/m2 LVOT Mean PG 2.00 mmHg RWT 0.46 LVOT VTI 19.50 cm EDV Mod BP 124.00 ml [ 62.00 - 150.00 ] LVOT Diam 2.40 cm LV EDV Index 67.39 ml/m2 SV LVOT 88.00 cm3 ESV Mod BP 51.40 ml [ 21.00 - 61.00 ] JOEL VTI 3.03 cm2 EF Mod BP 59 % [ 52 - 72 ] JOEL Vmax 2.67 cm2 LA Dimension 2D 4.00 cm [ 1.90 - 4.00 ] LVOT/AV VTI 0.67 - Dimensionless index (DVI) LA Length 2C 4.15 cm AI Peak Anastacio 2.59 m/s LA Length 4C 4.62 cm AI Peak PG 27.00 mmHg LA Volume BP 40.00 ml AI Decel [place] 1.43 m/s2 LA Volume Index 21.74 ml/m2 [ 16.00 - 34.00 ] AI PHT 532.00 ms RV Base Dimen 2D 3.5 cm [ 2.5 - 4.2 ] MV E Peak Anastacio 0.41 m/s RV Mid Dimen 2D 3.0 cm MV A Peak Anastacio 0.87 m/s RV Length Dimen 2D 7.7 cm MV A Dur 95.00 msec TAPSE 1.87 cm [ 1.71 - 5.00 ] MV E/A 0.50 ratio RA Volume 26.00 ml MV Decel Time 261.00 msec RA Volume Index 14.13 ml/m2 Med E` Anastacio 0.04 m/s AoR Diam 2D 3.20 cm [ 2.00 - 3.70 ] Lat E` Anastacio 0.06 m/s Ao Root Index 1.74 cm/m2 [ 1.00 - 2.00 ] Average E/E` 820.00 TV Peak Anastacio 0.42 m/s TV Peak PG 0.71 mmHg RV S` 0.10 m/s TR Peak Anastacio 2.46 m/s TR Peak PG 24.2 mmHg RA Pressure 3.00 mmHg RVSP 27.20 mmHg PV Peak Anastacio 0.89 m/s PV Peak PG 3.17 mmHg PV Mean PG 2.00 mmHg RVOT VTI 14.20 - ATTESTATION: I have reviewed and interpreted the pertinent images and measurements of this study. I attest to the conclusions in the final report that is provided above. DISCLAIMER: The study images and the final report will be retained in the patient chart by the Echo Laboratory for the legally required time period. This chart constitutes the legal record of any testing performed. Electronically Signed By: Joseph Reid MD [facility] 02/17/2025 9:56:17 AM CDT Procedure Note Joseph Reid MD - 02/17/2025 Transthoracic Echocardiographic Report Patient Name: SANCHEZ LUGO : 1955 (69y 10m) Gender: M Study Date: 02/13/2025 12:35:25 PM Ht(Inch): 62 Wt(Lb): 170.99 BSA: 1.84 President Sales And Marketing: Carito Ceballos [place] Order Provider: JANET PEREZ Heart Rate: 59 BMI: 31.27 BP: 118/80 Ref Provider: JANET PEREZ PROCEDURES: Echocardiographic Report: ([id number]) Transthoracic complete echo, 2D,spectral and tissue Doppler, color flow Doppler, M-mode. INDICATIONS: I42.9 Cardiomyopathy, unspecified and I48.0 Paroxysmal atrialfibrillation. FINDINGS: Left Ventricle: Normal left ventricular cavity size. Mild concentric leftventricular hypertrophy. Normal left ventricular systolic function. The EjectionFraction (Nelson's) is measured at 59 %. Diastolic Function Left ventricular diastolicparameters are consistent with Grade I diastolic dysfunction (normal LA pressure). Right Ventricle: Normal right ventricular size. Normal right ventricularsystolic function. Left Atrium: Mildly dilated left atrium. Right Atrium: The right atrium is normal in size. Atrial Septum: Interatrial Septum is not well visualized due to poor echowindows. Mitral Valve: Normal mitral valve leaflet structure. No mitralregurgitation seen. No mitral valve stenosis. Aortic Valve: Mild aortic valve regurgitation. No aortic valve stenosis.The mean transaortic gradient is 5 mmHg. Tricuspid Valve: The tricuspid valve demonstrates normal leafletstructure. No tricuspid regurgitation seen. The estimated right ventricular systolic pressure is27 mmHg. PASP cannot be evaluated due to lack of adequate TR jet. No tricuspid valvestenosis. Pulmonic Valve: Pulmonic Valve not well visualized due to poor echowindows. Pericardium: No pericardial effusion. Aorta: Normal aortic root. The aortic sinus is normal in size. Theascending aorta is normal in size. IVC: IVC Collapses normally with inspiration. The estimated RA pressure is3 mmHg. CONCLUSIONS: 1. Normal left ventricular cavity size. Mild concentric left ventricularhypertrophy. Normal left ventricular systolic function. The Ejection Fraction(Nelson's) is measured at 59 %. Diastolic Function Left ventricular diastolic parameters areconsistent with Grade I diastolic dysfunction (normal LA pressure). 2. Normal right ventricular size. Normal right ventricular systolicfunction. 3. Normal mitral valve leaflet structure. No mitral regurgitation seen. Nomitral valve stenosis. 4. Mild aortic valve regurgitation. No aortic valve stenosis. The meantransaortic gradient is 5 mmHg. 5. The tricuspid valve demonstrates normal leaflet structure. No tricuspidregurgitation seen. The estimated right ventricular systolic pressure is 27 mmHg. PASPcannot be evaluated due to lack of adequate TR jet. No tricuspid valve stenosis. MEASUREMENTS: 2D/MM Value Range DopplerValue LVIDd 2D 5.20 cm [ 3.50 - 5.70 ] AV Peak Vel1.54 m/s LVIDs 2D 4.00 cm [ 3.10 - 4.60 ] AV Peak PG9.49 mmHg IVSd 2D 1.00 cm [ 0.60 - 1.20 ] AV Mean PG5.00 mmHg LVPWd 2D 1.20 cm [ 0.60 - 1.10 ] AV VTI29.10 cm LV Thickness Ratio 0.83 LVOT Peak Vel0.91 m/s LV Mass 2D 225.26 g LVOT Peak PG3.31 mmHg LV Mass Index 2D 122.42 g/m2 LVOT Mean PG2.00 mmHg RWT 0.46 LVOT VTI19.50 cm EDV Mod BP 124.00 ml [ 62.00 - 150.00 ] LVOT Diam2.40 cm LV EDV Index 67.39 ml/m2 SV LVOT88.00 cm3 ESV Mod BP 51.40 ml [ 21.00 - 61.00 ] JOEL VTI3.03 cm2 EF Mod BP 59 % [ 52 - 72 ] JOEL Vmax2.67 cm2 LA Dimension 2D 4.00 cm [ 1.90 - 4.00 ] LVOT/AV VTI0.67 - Dimensionless index (DVI) LA Length 2C 4.15 cm AI Peak Vel2.59 m/s LA Length 4C 4.62 cm AI Peak PG27.00 mmHg LA Volume BP 40.00 ml AI Decel [place]1.43 m/s2 LA Volume Index 21.74 ml/m2 [ 16.00 - 34.00 ] AI AHR048.00 ms RV Base Dimen 2D 3.5 cm [ 2.5 - 4.2 ] MV E Peak Vel0.41 m/s RV Mid Dimen 2D 3.0 cm MV A Peak Vel0.87 m/s RV Length Dimen 2D 7.7 cm MV A Dur95.00 msec TAPSE 1.87 cm [ 1.71 - 5.00 ] MV E/A0.50 ratio RA Volume 26.00 ml MV Decel Mgba130.00 msec RA Volume Index 14.13 ml/m2 Med E` Vel0.04 m/s AoR Diam 2D 3.20 cm [ 2.00 - 3.70 ] Lat E` Vel0.06 m/s Ao Root Index 1.74 cm/m2 [ 1.00 - 2.00 ] Average E/E`820.00 TV Peak Anastacio 0.42 m/s TV Peak PG 0.71 mmHg RV S` 0.10 m/s TR Peak Anastacio 2.46 m/s TR Peak PG 24.2 mmHg RA Pressure 3.00 mmHg RVSP 27.20 mmHg PV Peak Anastacio 0.89 m/s PV Peak PG 3.17 mmHg PV Mean PG 2.00 mmHg RVOT VTI 14.20 - ATTESTATION: I have reviewed and interpreted the pertinent images and measurements ofthis study. I attest to the conclusions in the final report that is provided above. DISCLAIMER: The study images and the final report will be retained in the patientchart by the Echo Laboratory for the legally required time period. This chart constitutesthe legal record of any testing performed. Electronically Signed By: Joseph Reid MD [facility] 02/17/2025 9:56:17 AM CDT Janet Perez MD CV ECHO PROCEDURES Final Result from Last 3 Months Insurance [employer] [facility] Care Teams Foxer Relationship Specialty Start Date End Date Shell Nevarez MD PCP - General Family Medicine 10/01/24
--- OUTSIDE RECORDS SUMMARY | 2025-04-27 13:29 | XMS_ITS | Data Portability ---
[facility] Address [address] [place] [address] Assessment No assessment recorded. Plan of Treatment Reminders Order Date Submit Date Provider Last Modified By Organization Details Last Modified Time Details Appointments None record ed. Lab None record ed. Referral None record ed. Procedures None record ed. Surgeries None record ed. Imaging None record ed. Medication Orders None record ed. Patient TargetsNo targets recorded. Patient Instructions Encounter Date Encounter Id Patient Instructions Last Modified By Organization Details Last Modified Time 06/17/2024 [id number] type 2 diabetes: care instructions [email or web address] Not available 06/17/2024 10:49:16 Reason for Referral None Reported. Problems No Known Problems Medical Equipment None Reported. Allergies No known drug allergies Medications Name Sig Start Date Stop Date Status Note LastModified by Organization Details LastModified Time furosemide 40 mg tablet TAKE 1 TABLET BY MOUTH TWICE A DAY active Not Available Not Available No t Available azithromycin 250 mg tablet TAKE 2 TABLETS BY MOUTH TODAY, THEN TAKE 1 TABLET DAILY FOR 4 DAYS DIRECTED active Not Available Not Available No t Available metoprolol succinate ER 100 mg tablet,exten ded release 24 hr TAKE 1 TABLET BY MOUTH EVERY DAY active Not Available Not Available No t Available allopurinol 100 mg tablet TAKE 1 TABLET BY MOUTH EVERY DAY FOR 90 DAYS active Not Available Not Available No t Available ferrous sulfate 325 mg (65 mg iron) tablet TAKE 1 TABLET BY MOUTH EVERY DAY DIRECTED active Not Available Not Available No t Available ergocalcifer ol (vitamin D2) 1,250 mcg (50,000 unit) capsule TAKE 1 CAPSULE BY MOUTH ONE TIME PER WEEK FOR 90 DAYS active Not Available Not Available No t Available albuterol sulfate HFA 90 mcg/actuatio n aerosol inhaler INHALE 2 PUFFS EVERY 4 HOURS BY INHALATION ROUTE. active Not Available Not Available No t Available ketoconazole 2 % topical cream APPLY TO THE AFFECTED AREA(S) OF TOENAILS BY TOPICAL ROUTE ONCE DAILY active Not Available Not Available No t Available lisinopril 40 mg tablet TAKE 1 TABLET BY MOUTH TWICE A DAY active Not Available Not Available No t Available calcitriol 0.25 mcg capsule TAKE 1 CAPSULE BY MOUTH TWICE A DAY active Not Available Not Available No t Available doxazosin 2 mg tablet TAKE 1 TABLET BY MOUTH EVERY DAY FOR 90 DAYS active Not Available Not Available No t Available escitalopram 10 mg tablet TAKE 1 TABLET BY MOUTH EVERY DAY FOR 90 DAYS active Not Available Not Available No t Available rosuvastatin 40 mg tablet TAKE 1 TABLET BY MOUTH EVERYDAY AT BEDTIME active Not Available Not Available No t Available Eliquis 5 mg tablet TAKE 1 TABLET BY MOUTH TWICE A DAY active Not Available Not Available No t Available Jardiance 10 mg tablet TAKE 1 TABLET BY MOUTH EVERY DAY active Not Available Not Available No t Available Vitals Date Recorded Heart rate Body weight Body temperature Pain severity - 0-10 verbal numeric rating [Score] - Reported Systolic And Diastolic Provider Name and Address Organization Details Last Updated DateTime 06/17/2024 78 /min 37796.9 g 97.5 [degF] 0 137/85 mm[Hg] Carlos Darden MA [place] [facility] 10:12:41 Social History Question Answer Notes LastModified by Organizat ion Details LastModified Time Tobacco Smoking Status Never Smoker Carlos Darden MA null, [place] - [facility] 06/17/2024 10:13:38 Do You Have An Advance Directive? No Information n ot available 06/17/2024 In The 14 Days Before Symptom Onset, Have You Had Close Contact With A Laboratory-confirm ed COVID-19 While That Case Was Ill? No Information n ot available 06/17/2024 In The 14 Days Before Symptom Onset, Have You Had Close Contact With A Person Who Is Under Investigation For COVID-19 While That Person Was Ill? No Information not available 06/17/2024 Have You Been To An Area Known To Be High Risk For COVID-19? No Information not available 06/17/2024 Do You Have A Medical Power Of Power Brake Rebuilder? No Information not available 06/17/2024 What Was The Date Of Your Most Recent Tobacco Screening? 06/17/2024 [facility] Information not available 06/17/2024 Sex: Unknown Functional Status None recorded. Mental Status None recorded. Family History Nothing Reported. Medical History No medical history recorded. Past Encounters Encounter ID Performer Location Encounter Start Date Encounter Closed Date Diagnosis/Indication Diagnosis SNOMED-CT Code Diagnosis ICD10 Code Diagnosis IMO Codes Diagnosis Note [id number] Bruna Cui MD [facility] [address] [place] [id number] 06/17/2024 09:34:17 06/17/2024 11:48:03 Type 2 diabetes mellitus without complication 630535687 E11.[address] macular degeneration 219903403 H35.369 Nuclear cataract 4544643 7 H25.13 Tear film insufficiency of bilateral eyes 9067607256 94613 H04.123 Health Concerns Section Related Observation LastModified by Organization Detai ls LastModified Time None Recorded Concern Status LastModified by Organization Details LastModified Time None Recorded Advance Directives Directive N: Payers None recorded. Notes Date Note Type Note Provider Name and Address Organization Details Recorded Time 06/17/2024 text/html Diabetic,hypert ensive pt. here for eye examC/O blurred vision and dryness [facility] Bruna Cui MD [address] [place], [address], [facility] 06/17/2024 10:49:19
--- OUTSIDE RECORDS SUMMARY | 2025-04-27 13:30 | XMS_ITS | Patient Health Record ---
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 Name Role Phone Mikey Joe Unavailable [phone] Reason For Referral No Information Medications Medication SIG (Take, Route, Frequency, Duration) Notes Start Date End Date Status Doxazosin Mesylate 2 MG TAKE 1 TABLET BY MOUTH EVERY DAY FOR 90 DAYS; Duration: 90 Active Vitamin D (Ergocalciferol) 1.25 MG (61087 UT) TAKE 1 CAPSULE BY MOUTH ONE TIME PER WEEK FOR 90 DAYS; Duration: 28 Active Jardiance 10 MG TAKE 1 TABLET BY PARK TH EVERY DAY; Duration: 90 Active Allopurinol 100 MG 1 tablet Orally Once a day; Duration: 90 days 01/19/2025 01/14/2026 Active Calcitriol 0.25 MCG TAKE 1 CAPSULE BY MO UTH TWICE A DAY; Duration: 30 Active Furosemide 40 MG TAKE 1 TABLET BY PARK TH TWICE A DAY; Duration: 30 Active Escitalopram Oxalate 10 MG TAKE 1 TABLET BY MOUTH EVERY DAY FOR 90 DAYS; Duration: 90 Active Lisinopril 40 MG TAKE 1 TABLET BY PARK TH TWICE A DAY; Duration: 90 Active Ferrous Sulfate 325 (65 Fe) MG 1 tablet Orally daily; Duration: 90 days DX CODE E61.1 E61. 1 Active Losartan Potassium 25 MG 1 tablet Orally Once a day; Duration: 90 day(s) 02/23/2023 Active Social History Sex Assigned At : Social History Observation Description Sex Assigned At Male Problems Problem Type SNOMED Code ICD Code Onset Dates Problem Status W/U Status Risk Notes Problem Anemia (177843716) Anemia, unspe cified (D64.9) Active confirmed Problem Diabetic renal disease (695984606) Type 2 diabetes mellitus with diabetic chronic kidney disease (E11.22) Active confirmed Problem Metabolic disorder (27582750) Metabolic disorder, unspecified (E88.9) Active confirmed Problem Essential hypertension (35634644) Essential (primary) hypertension (I10) Active confirmed Problem Heart failure (38454925) Heart failure, unspecified (I50.9) Active confirmed Problem Acute renal failure syndrome (07484641) Other acute kidney failure (N17.8) Active confirmed Problem Acute renal failure syndrome (89130244) Acute kidney failure, unspecified (N17.9) Active confirmed Problem Chronic kidney disease stage 4 (414636114) Chronic kidney disease, stage 4 (severe) (N18.4) Active confirmed Problem Renal osteodystrophy (24588296) Renal osteodystrophy (N25.0) Active confirmed Problem Secondary hyperparathyroidism of renal origin (89144312) Secondary hyperparathyroidism of renal origin (N25.81) Active confirmed Problem Proteinuria (55156111) Proteinuria, unspecified (R80.9) Active confirmed Problem Coronary artery disease (97377354) CAD (coronary artery disease) (I25.10) Active confirmed Problem 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 Encounters Encounter Location Date Provider Diagnosis [facility] [address] [place] [address] 05/21/2024 Mikey Joe Heart failure, unspe cified I50.9 ; Chronic kidney disease, stage 5 N18.5 ; Acute kidney failure, unspecified N17.9 ; Other acute kidney failure N17.8 ; Essential (primary) hypertension I10 ; Renal osteodystrophy N25.0 and Chronic kidney disease, stage 4 (severe) N18.4 [facility] [address] [place] [address] 07/23/2024 Mikey Jeo Type 2 diabetes [facility] with diabetic chronic kidney disease E11.22 ; Essential (primary) hypertension I10 ; Proteinuria, unspecified R80.9 ; Renal osteodystrophy N25.0 and Secondary hyperparathyroidism of renal origin N25.81 [facility] [address] [place] [address] 09/10/2024 Mikey Joe Chronic kidney disea se, stage 4 (severe) N18.4 ; Heart failure, unspecified I50.9 ; Acute kidney failure, unspecified N17.9 ; Other acute kidney failure N17.8 ; Essential (primary) hypertension I10 ; Renal osteodystrophy N25.0 ; Type 2 diabetes mellitus with diabetic chronic kidney disease E11.22 ; Secondary hyperparathyroidism of renal origin N25.81 ; Anemia, unspecified D64.9 and Proteinuria, unspecified R80.9 [facility] [address] [place] [address] 11/19/2024 Mikey Joe Chronic kidney disea se, stage 4 (severe) N18.4 ; Heart failure, unspecified I50.9 ; Acute kidney failure, unspecified N17.9 ; Other acute kidney failure N17.8 ; Essential (primary) hypertension I10 ; Renal osteodystrophy N25.0 ; Type 2 diabetes mellitus with diabetic chronic kidney disease E11.22 ; Secondary hyperparathyroidism of renal origin N25.81 ; Anemia, unspecified D64.9 and Proteinuria, unspecified R80.9 [facility] [address] [place] [address] 01/14/2025 Mikey Joe Chronic kidney disea se, [...] of inflammatory arthritis and tophaceous disease E79.0 [facility] [address] [place] [address] 04/15/2025 Mikey Joe Chronic kidney disea se, [...] E79.89 and CAD (coronary artery disease) I25.10 [facility] [address] [facility] [address] [place] [address] 11/19/2024 Mikey Joe [facility] [address] [address] 01/19/2025 Mikey Joe [facility] [address] [address] 05/21/2024 Mikey Joe Assessments Encounter Date Diagnosis (ICD Code) Assessment Notes Treatment Notes Treatment Clinical Notes Section Notes 05/21/2024 Heart failure, unspecified (ICD-10 - I50.9) 05/21/2024 Chronic kidney disea se, stage 5 (ICD-10 - N18.5) 07/23/2024 Type 2 diabetes mellitus with diabetic chronic kidney disease (ICD-10 - E11.22) 07/23/2024 Essential (primary) hypertension (ICD-10 - I10) 09/10/2024 Chronic kidney disea se, stage 4 (severe) (ICD-10 - N18.4) 11/19/2024 Chronic kidney disea se, stage 4 (severe) (ICD-10 - N18.4) 01/14/2025 Heart failure, unspecified (ICD-10 - I50.9) 01/14/2025 Chronic kidney disea se, stage 4 (severe) (ICD-10 - N18.4) 04/15/2025 Chronic kidney disea se, stage 4 (severe) (ICD-10 - N18.4) 01/14/2025 Acute kidney failure , unspecified (ICD-10 - N17.9) 04/15/2025 Heart failure, unspecified (ICD-10 - I50.9) 11/19/2024 Heart failure, unspecified (ICD-10 - I50.9) 07/23/2024 Proteinuria, unspecified (ICD-10 - R80.9) 09/10/2024 Heart failure, unspecified (ICD-10 - I50.9) 05/21/2024 Acute kidney failure , unspecified (ICD-10 - N17.9) 05/21/2024 Other acute kidney failure (ICD-10 - N17.8) 07/23/2024 Renal osteodystrophy (ICD-10 - N25.0) 09/10/2024 Acute kidney failure , unspecified (ICD-10 - N17.9) 04/15/2025 Acute kidney failure , unspecified (ICD-10 - N17.9) 01/14/2025 Other acute kidney failure (ICD-10 - N17.8) 11/19/2024 Acute kidney failure , unspecified (ICD-10 - N17.9) 04/15/2025 Other acute kidney failure (ICD-10 - N17.8) 01/14/2025 Essential (primary) hypertension (ICD-10 - I10) 09/10/2024 Other acute kidney failure (ICD-10 - N17.8) 05/21/2024 Essential (primary) hypertension (ICD-10 - I10) 11/19/2024 Other acute kidney failure (ICD-10 - N17.8) 07/23/2024 Secondary hyperparathyroidism of renal origin (ICD-10 - N25.81) 05/21/2024 Renal osteodystrophy (ICD-10 - N25.0) 09/10/2024 Essential (primary) hypertension (ICD-10 - I10) 04/15/2025 Essential (primary) hypertension (ICD-10 - I10) 11/19/2024 Essential (primary) hypertension (ICD-10 - I10) 01/14/2025 Renal osteodystrophy (ICD-10 - N25.0) 01/14/2025 Type 2 diabetes mellitus with diabetic chronic kidney disease (ICD-10 - E11.22) 11/19/2024 Renal osteodystrophy (ICD-10 - N25.0) 04/15/2025 Renal osteodystrophy (ICD-10 - N25.0) 09/10/2024 Renal osteodystrophy (ICD-10 - N25.0) 05/21/2024 Chronic kidney disea se, stage 4 (severe) (ICD-10 - N18.4) 11/19/2024 Type 2 diabetes mellitus with diabetic chronic kidney disease (ICD-10 - E11.22) 09/10/2024 Type 2 diabetes mellitus with diabetic chronic kidney disease (ICD-10 - E11.22) 04/15/2025 Type 2 diabetes mellitus with diabetic chronic kidney disease (ICD-10 - E11.22) 01/14/2025 Secondary hyperparathyroidism of renal origin (ICD-10 - N25.81) 01/14/2025 Anemia, unspecified (ICD-10 - D64.9) 11/19/2024 Secondary hyperparathyroidism of renal origin (ICD-10 - N25.81) 04/15/2025 Secondary hyperparathyroidism of renal origin (ICD-10 - N25.81) 09/10/2024 Secondary hyperparathyroidism of renal origin (ICD-10 - N25.81) 11/19/2024 Anemia, unspecified (ICD-10 - D64.9) 09/10/2024 Anemia, unspecified (ICD-10 - D64.9) 01/14/2025 Proteinuria, unspecified (ICD-10 - R80.9) 04/15/2025 Anemia, unspecified (ICD-10 - D64.9) 01/14/2025 Metabolic disorder, unspecified (ICD-10 - E88.9) 11/19/2024 Proteinuria, unspecified (ICD-10 - R80.9) 04/15/2025 Proteinuria, unspecified (ICD-10 - R80.9) 09/10/2024 Proteinuria, unspecified (ICD-10 - R80.9) 04/15/2025 Metabolic disorder, unspecified (ICD-10 - E88.9) 01/14/2025 Hyperuricemia withou t signs of inflammatory arthritis and tophaceous disease (ICD-10 - E79.0) 04/15/2025 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
== END 2025-04-27 13:01 | disposition home or self-care (01) ==
PROVIDERS: Emergency Provider Nurse Practitioner; PCP Family Medicine
DX: H93.8X2 Other specified disorders of left ear (principal); E78.5 Hyperlipidemia, unspecified; N18.9 Chronic kidney disease, unspecified
CPT/HCPCS: 99202; G0463